=== PATIENT | female | born 1950 | race African-American/Black ===

== ENCOUNTER 2017-04-12 18:58 | Inpatient (IN) | payer MEDICARE, MEDICAID ==
[~2017-04-12] VITALS: Ht 167.6 cm; Wt 79.4 kg
[~2017-04-12 18:58] MED LIST: BENZ2TAB7 PO; LIP40 PO; LISI40TA4 PO; NIFE30TA8 PO
[2017-04-12 20:29] LABS: EOSINOPHILS % 4.3 % (0.0-5.0); HEMATOCRIT. 37.4 % (36.0-48.0); HEMOGLOBIN. 12.1 g/dL (12.0-16.0); LYMPHOCYTES % 40.9 % (20.0-50.0); MEAN CORPUSCULAR HEMOGLOBIN 26.6 pg (28.0-32.0); MEAN CORPUSCULAR VOLUME 82.3 fL (81.0-99.0); MEAN PLATELET VOLUME 7.7 fl (7.4-10.4); MONOCYTES % 7.6 % (2.0-8.0); NEUTROPHILS % 46.2 % (40.0-76.0); PLATELET 318 x1000/uL (130-400); RED BLOOD CELL COUNT 4.54 mill/uL (4.2-5.4); RED CELL DISTRIBUTION WIDTH 14.2 % (11.6-14.6)
[2017-04-12 20:35] LABS: CHLORIDE 107 mEq/L (98-107)
[2017-04-12 20:36] LABS: PROTHROMBIN TIME 10.6 sec (9.4-11.6)
[2017-04-12 20:44] LABS: CARBON DIOXIDE 27 mEq/L (21-32)
[2017-04-12 23:14] LABS: CLARITY URINE CLEAR (CLEAR); COLOR URINE YELLOW (YELLOW); GLUCOSE URINE NEGATIVE (NEGATIVE); KETONES URINE 1+ (NEGATIVE); LEUKOCYTE ESTERASE URINE NEGATIVE (NEGATIVE); NITRITE URINE NEGATIVE (NEGATIVE); OCCULT BLOOD URINE NEGATIVE (NEGATIVE); PROTEIN URINE TRACE (NEGATIVE); SPECIFIC GRAVITY URINE 1.027 (1.005-1.030)
[2017-04-13] MEDS ORDERED: SODIUM CHLORIDE 0.9% 1,000 ML IV SCH (01:58)
[2017-04-13] MEDS ORDERED: POTASSIUM CHLORIDE 20MEQ TABLET SR PO ONE (02:00)
[2017-04-13] MEDS ORDERED: ACETAMINOPHEN 325MG TABLET PO PRN (02:00)
[2017-04-13] MEDS ORDERED: IBUPROFEN 600MG TABLET PO PRN (02:00)
[2017-04-13] MEDS ORDERED: HYDROCODONE/ACETAMINOPHEN 5/325MG TABLET PO ONE (02:30)
[2017-04-13 05:41] VITALS: BP 131/47
[2017-04-13] MEDS ORDERED: OMEP20TA15 PO (06:17)
[2017-04-13] MEDS ORDERED: POLY255P2 PO (06:17)
[2017-04-13] MEDS ORDERED: FLUP10TA2 PO (06:17)
[2017-04-13] MEDS ORDERED: DIAZ10TA4 PO (06:17)
[2017-04-13] MEDS ORDERED: DIPH25CA83 PO (06:17)
[2017-04-13] MEDS ORDERED: AMLO1CAP PO (06:17)
[2017-04-13] MEDS ORDERED: BACL-141 PO (06:17)
[2017-04-13] MEDS ORDERED: TRAZ-129 PO (06:17)
[2017-04-13] MEDS ORDERED: AMIT25TA9 PO (06:17)
[2017-04-13] MEDS ORDERED: LORA1TAB PO (06:17)
[2017-04-13] MEDS ORDERED: BENZ2TAB7 PO (06:17)
[2017-04-13] MEDS ORDERED: HYDR-523 PO (06:17)
[2017-04-13 08:00] VITALS: BP 165/79
[2017-04-13 08:28] LABS: BASOPHILS % 0.3 % (0.0-2.0); EOSINOPHILS % 3.3 % (0.0-5.0); HEMATOCRIT. 34.7 % (36.0-48.0); HEMOGLOBIN. 11.1 g/dL (12.0-16.0); LYMPHOCYTES % 37.5 % (20.0-50.0); MEAN CORPUSCULAR HEMOGLOBIN 26.3 pg (28.0-32.0); MEAN CORPUSCULAR VOLUME 82.6 fL (81.0-99.0); MEAN PLATELET VOLUME 7.6 fl (7.4-10.4); MONOCYTES % 8.3 % (2.0-8.0); NEUTROPHILS % 50.6 % (40.0-76.0); PLATELET 301 x1000/uL (130-400); RED CELL DISTRIBUTION WIDTH 14.2 % (11.6-14.6)
[2017-04-13] MEDS: POTASSIUM CHLORIDE 20MEQ TABLET SR PO SCH (08:42)
[2017-04-13] MEDS: ASPIRIN 81MG TABLET PO SCH (08:42)
[2017-04-13] MEDS: ENOXAPARIN 40MG/0.4ML SYR SUBCUT SCH (08:43)
[2017-04-13 08:51] LABS: CARBON DIOXIDE 28 mEq/L (21-32); CHLORIDE 109 mEq/L (98-107)
[2017-04-13] MEDS ORDERED: ZOLPIDEM TARTRATE 5MG TABLET PO PRN (11:30)
[2017-04-13 12:00] VITALS: BP 116/43
[2017-04-13] MEDS ORDERED: PNEUMOCOCCAL 23-VAL P-SAC VAC 0.5 ML IM ONE (12:00)
[2017-04-13] MEDS ORDERED: NIFEDIPINE XL 30MG TAB PO SCH (12:00)
[2017-04-13] MEDS: LISINOPRIL 40MG TABLET PO SCH (12:20)
[2017-04-13] MEDS: LORAZEPAM 1MG TABLET PO SCH (12:20)
[2017-04-13] MEDS: BACLOFEN 10MG TABLET PO SCH ×2 (12:21→17:01)
[2017-04-13 16:00] VITALS: BP 111/40
[2017-04-13] MEDS ORDERED: BENZTROPINE MESYLATE 2MG TABLET PO SCH (17:00)
[2017-04-13] MEDS: AMITRIPTYLINE 25MG TABLET PO SCH (17:01)
[2017-04-13] MEDS: TRAZODONE HCL 50MG TABLET PO SCH (17:01)
[2017-04-13] MEDS: BENZTROPINE MESYLATE 2MG TABLET PO SCH (17:01)
[2017-04-13 20:00] VITALS: BP 110/38
[2017-04-13] MEDS ORDERED: DIPHENHYDRAMINE 25MG CAPSULE PO SCH (21:00)
[2017-04-13] MEDS ORDERED: ATORVASTATIN CALCIUM 40MG TABLET PO SCH (21:00)
[2017-04-13] MEDS: NIFEDIPINE XL 60MG TAB PO SCH (21:00)
[2017-04-14] VITALS: BP 118/31
[2017-04-14 04:00] VITALS: BP 113/34
[2017-04-14 06:33] LABS: BASOPHILS % 1.1 % (0.0-2.0); EOSINOPHILS % 2.8 % (0.0-5.0); HEMATOCRIT. 35.6 % (36.0-48.0); HEMOGLOBIN. 11.6 g/dL (12.0-16.0); LYMPHOCYTES % 37.5 % (20.0-50.0); MEAN CORPUSCULAR HEMOGLOBIN 26.9 pg (28.0-32.0); MEAN CORPUSCULAR VOLUME 82.9 fL (81.0-99.0); MEAN PLATELET VOLUME 7.8 fl (7.4-10.4); MONOCYTES % 8.6 % (2.0-8.0); PLATELET 287 x1000/uL (130-400); RED CELL DISTRIBUTION WIDTH 14.3 % (11.6-14.6)
[2017-04-14 06:40] LABS: AMMONIA 23 uMol/L (<32)
[2017-04-14 07:55] LABS: CHLORIDE 110 mEq/L (98-107)
[2017-04-14 08:04] LABS: CARBON DIOXIDE 24 mEq/L (21-32)
[2017-04-14 08:55] VITALS: BP 146/89
[2017-04-14] MEDS: ENOXAPARIN 40MG/0.4ML SYR SUBCUT SCH (09:09)
[2017-04-14] MEDS: POTASSIUM CHLORIDE 20MEQ TABLET SR PO SCH (09:09)
[2017-04-14] MEDS: BENZTROPINE MESYLATE 2MG TABLET PO SCH ×2 (09:10→17:00)
[2017-04-14] MEDS: LORAZEPAM 1MG TABLET PO SCH (09:10)
[2017-04-14] MEDS: NIFEDIPINE XL 60MG TAB PO SCH (09:10)
[2017-04-14] MEDS: LISINOPRIL 40MG TABLET PO SCH (09:10)
[2017-04-14] MEDS: BACLOFEN 10MG TABLET PO SCH ×3 (09:10→17:01)
[2017-04-14] MEDS: ASPIRIN 81MG TABLET PO SCH (09:10)
[2017-04-14 12:00] VITALS: BP 129/62
[2017-04-14 14:56] VITALS: BP 108/43
[2017-04-14 16:00] VITALS: BP 108/43
[2017-04-14] MEDS: AMITRIPTYLINE 25MG TABLET PO SCH (17:00)
[2017-04-14] MEDS: TRAZODONE HCL 50MG TABLET PO SCH (17:00)
== END 2017-04-14 20:00 | disposition home health service (06) | DRG 149 ==
LOC: ER 18:58 → 8WST 04-13 02:05 → CANRESERV 04-13 03:32 → ENRESERV 04-13 03:32
PROVIDERS: ADMIT Hospitalist; ATTEND Hospitalist
DX: R42 Dizziness and giddiness (principal); E44.1 Mild protein-calorie malnutrition; I10 Essential (primary) hypertension; E78.5 Hyperlipidemia, unspecified; E87.6 Hypokalemia; F17.200 Nicotine dependence, unspecified, uncomplicated; Z88.0 Allergy status to penicillin; Z88.8 Allergy status to other drugs, medicaments and biological substances; Z79.899 Other long term (current) drug therapy; Z79.1 Long term (current) use of non-steroidal anti-inflammatories (NSAID); Z68.28 Body mass index [BMI] 28.0-28.9, adult
CPT/HCPCS: 36415; 70450; 71010; 80048; 80053; 81001; 82140; 85025; 85610; 93005; 97162; 97166; 99285; J1650; J7030; Q0163